=== PATIENT | female | born 1995 | race Caucasian/White ===

== ENCOUNTER 2018-07-13 13:16 | Outpatient (CLI) | payer BC | END 2018-07-13 23:59 | LOC: LAB.R 13:16 | PROVIDERS: ATTEND Nurse Practitioner Primary Care | DX: L29.8 Other pruritus (principal) | CPT/HCPCS: 87086 ==

== ENCOUNTER 2019-09-08 14:54 | Outpatient (CLI) | payer BC | END 2019-09-08 14:55 | disposition home or self-care (01) | LOC: NS 14:54 | PROVIDERS: ATTEND Family Medicine | DX: Z71.3 Dietary counseling and surveillance (principal); E66.9 Obesity, unspecified; Z68.34 Body mass index [BMI] 34.0-34.9, adult | CPT/HCPCS: 97802 ==

== ENCOUNTER 2019-10-13 17:08 | Outpatient (CLI) | payer BC | END 2019-10-13 17:09 | disposition home or self-care (01) | LOC: LAB 17:08 | PROVIDERS: ATTEND Family Medicine | DX: Z91.89 Other specified personal risk factors, not elsewhere classified (principal) | CPT/HCPCS: 36415; 83655 ==

== ENCOUNTER 2020-04-19 08:48 | Outpatient (CLI) | payer BC ==
--- NOTE | 2020-04-19 16:37 | XRAY Report ---
PROCEDURE: Lumbar Spine 2 View INDICATIONS: LUMBAR DISC HERNIATION TECHNIQUE: 2 views of the lumbar spine were acquired. COMPARISON: None. FINDINGS: Bones: 5 [id number] vertebrae are present. There is normal bony alignment. No vertebral body compression fractures. No suspicious bony lesions. Soft tissues: Overlying bowel gas pattern is normal. No suspicious soft tissue calcifications. IMPRESSION: Lumbar spine without acute radiographic abnormalities. Reviewed by: Feliciano Richards MD on 04/19/2020 4:36 PM PDT Approved by: Feliciano Richards MD on 04/19/2020 4:36 PM PDT Station ID: [id number]
== END 2020-04-19 08:49 | disposition home or self-care (01) ==
LOC: DI 08:48
PROVIDERS: ATTEND Family Medicine
DX: M51.26 Other intervertebral disc displacement, lumbar region (principal)
CPT/HCPCS: 72100

== ENCOUNTER 2020-06-02 07:22 | Outpatient (CLI) | payer BC ==
--- NOTE | 2020-06-02 09:11 | MRI Report ---
PROCEDURE: Lumbar Spine W/O INDICATIONS: LUMBAR DISC HERNIATION TECHNIQUE: Noncontrast sagittal T1 spin echo and T2 fast echo, sagittal STIR, axial T1 and T2 fast spin echo thr ough the lumbar spine. In cases with scoliosis, additional coronal T2 fast spin echo may be performe d. COMPARISON: None. FINDINGS: Image quality: Excellent. Alignment and Curvature: Normal alignment of the lumbar spine. Vertebral body heights maintained. Bone Marrow: No bone marrow edema or suspicious focal marrow signal abnormality. Spinal Cord: Conus medullaris terminates at the superior L2 level. Visualized cord demonstrates nor mal signal and size. Paraspinous Soft Tissues: No paravertebral masses. T12-L1: Normal in appearance. L1-L2: Normal in appearance. L2-L3: Normal in appearance. L3-L4: Normal in appearance. L4-L5: Normal in appearance. L5-S1: Normal in appearance. IMPRESSION: Normal lumbar spine MRI. Reviewed by: Jt Way MD on 06/02/2020 9:10 AM PDT Approved by: Jt Way MD on 06/02/2020 9:10 AM PDT Station ID: [id number]
== END 2020-06-02 07:23 | disposition home or self-care (01) ==
LOC: DI 07:22
PROVIDERS: ATTEND Family Medicine
DX: M51.26 Other intervertebral disc displacement, lumbar region (principal)
CPT/HCPCS: 72148

== ENCOUNTER 2021-01-11 08:00 | Outpatient (CLI) | payer OTHER, BC ==
[2021-01-11 22:40] LABS: BACTERIAL VAGINOSIS DNA POSITIVE (NEGATIVE); CANDIDA GLABRATA DNA NEGATIVE (NEGATIVE); CANDIDA GROUP DNA POSITIVE (NEGATIVE); CANDIDA KRUSEI DNA NEGATIVE (NEGATIVE); TRICHOMONAS VAGINALIS DNA NEGATIVE (NEGATIVE)
== END 2021-01-11 23:59 | disposition home or self-care (01) ==
LOC: LAB.N 08:00
PROVIDERS: ATTEND Family Medicine
DX: R30.0 Dysuria (principal); N76.0 Acute vaginitis
CPT/HCPCS: 87086; 87661; 87801

== ENCOUNTER 2021-08-14 12:00 | Outpatient (CLI) | payer BC, OTHER | END 2021-08-14 23:59 | disposition home or self-care (01) | LOC: LAB.N 12:00 | PROVIDERS: ATTEND Nurse Practitioner | DX: U07.1 COVID-19 (principal) ==